=== PATIENT | female | born 1995 | race Caucasian/White ===

== ENCOUNTER 2017-09-06 17:31 | Emergency (ER) | END 2017-09-06 17:44 | disposition left against medical advice (07) | LOC: UCCORT 17:31 | DX: T14.8XXA Other injury of unspecified body region, initial encounter (principal); W55.01XA Bitten by cat, initial encounter; Y93.9 Activity, unspecified; Y92.9 Unspecified place or not applicable; Z53.21 Procedure and treatment not carried out due to patient leaving prior to being seen by health care provider ==

== ENCOUNTER 2018-09-03 10:51 | Emergency (ER) | payer BC, OTHER ==
--- NOTE | 2018-09-03 11:10 | UC ---
Lower Extremity/Ankle HPI - HPI Summary HPI Summary: 23 yo female presents with LEFT ankle and lower leg pain. She tells me that she was walking down the stairs on [facility] and her foot bent backwards and she twisted her ankle. Had immediate pain. She tried to use crutches, but was in too much pain. She cannot apply any weight to her left foot /ankle due to severe pain. She has not taken anything for pain. - History of Current Complaint Stated Complaint: LOWER LEFT LEG INJURY/RIGHT ANKLE Time Seen by Provider: 09/03/18 11:10 Hx Obtained From: Patient Onset/Duration: Sudden Onset Severity Initially: Severe Severity Currently: Severe Pain Intensity: 10 Pain Scale Used: 0-10 Numeric Able to Bear Weight: No - Allergies/Home Medications Allergies/Adverse Reactions: Allergies Allergy/AdvReac Type Severity Reaction Status Date / Time clams Allergy Unknown Verified 09/03/18 11:19 Reaction Details tree and shrub pollen Allergy Eyes Verified 09/03/18 11:19 Itchy/Swollen/Red/Watery Home Medications: Home Medications Amphetamine MIXED SALT TAB* [Adderall TAB*] 10 mg PO DAILY 09/03/18 [History Confirmed 09/03/18] Sertraline* [Zoloft*] 200 mg PO DAILY 09/03/18 [History Confirmed 09/03/18] clonazePAM TAB(*) [KlonoPIN TAB(*)] 0.5 mg PO TID PRN 09/03/18 [History Confirmed 09/03/18] PMH/Surg Hx/FS Hx/Imm Hx - Additional Past Medical History Additional PMH: ADHD Psychological History: Anxiety, Depression - Surgical History Surgical History: None - Family History Known Family History: Positive: None - Social History Occupation: Student Lives: Dormitory/Roommates Alcohol Use: Occasionally Substance Use Type: None Smoking Status (MU): Never Smoked Tobacco Review of Systems Constitutional: Negative Skin: Negative Respiratory: Negative Cardiovascular: Negative Neurovascular: Negative Musculoskeletal: Other: - Left ankle and lower leg pain Neurological: Negative Psychological: Negative All Other Systems Reviewed And Are Negative: Yes Physical Exam - Summary Physical Exam Summary: GENERAL: NAD. WDWN. SKIN: No rashes, sores, lesions, or open wounds. CHEST: No accessory muscle use. Breathing comfortably and in no distress. CV: Pulses intact PT and DP. Cap refill <2seconds MSK: RIGHT ANKLE: Strength 5/5. No edema or obvious bony deformities. Negative talar tilt. No increased laxity. LEFT ANKLE: Severe TTP over lateral malleolus and distal tib/fib. Decreased ROM due to pain - worse with plantar flexion and inversion. NEURO: Alert. Sensations intact and symmetric B/L LEs PSYCH: Age appropriate behavior. Triage Information Reviewed: Yes Vital Signs: Vital Signs: Temp Pulse Resp BP Pulse Ox 97.8 F 65 14 113/78 100 09/03/18 11:14 09/03/18 11:14 09/03/18 11:14 09/03/18 11:14 09/03/18 11:14 Vital Signs Reviewed: Yes Lower Extremity Course/Dx - Course Course Of Treatment: In the clinic she was given one tab of [place] for pain with good relief. iSTOP Reference #: [id number]. XR: IMPRESSION: No fracture of left leg is noted. IMPRESSION: No fracture of the left foot is noted. IMPRESSION: No fracture of the left ankle is noted. Pt has crutches at home. She was given an yulia wrap and gel ankle splint. Advised to RICE and take ibuprofen. F/u with Ortho if symptoms worsen or persist. - Differential Dx/Diagnosis Provider Diagnoses: Left ankle sprain Discharge - Sign-Out/Discharge Documenting (check all that apply): Patient Departure All imaging exams completed and their final reports reviewed: Yes - Discharge Plan Condition: Stable Disposition: HOME Prescriptions: Ibuprofen 800 mg PO Q8HR PRN #30 tablet PRN Reason: Pain Patient Education Materials: Ankle Sprain (ED) Forms: *Work Release Referrals: Lupe Tompkins MD [Primary Care Provider] - Cholo Hinson MD [Medical Doctor] - If Needed Additional Instructions: If you develop a fever, shortness of breath, chest pain, new or worsening symptoms - please call your PCP or go to the ED. 1) Rest, Ice, and elevate your ankle as much as possible 2) Use the crutches, yulia wrap, and gel splint as needed for comfort and added support 3) If your symptoms worsen or persist - please schedule a follow up appointment with Orthopedics at the number below - Billing Disposition and Condition Condition: STABLE Disposition: Home
[2018-09-03] MEDS ORDERED: HYDROcodone/ACETAMIN 5-325 MG* 1 TAB PO ONE (11:17)
[2018-09-03 11:24] VITALS: BP 113/78
--- NOTE | 2018-09-03 11:49 | RAD ---
Indication: Left ankle pain. 3 views of left ankle demonstrates ankle mortise to be intact. There is no fracture or dislocation. No other bone or joint abnormality is identified. IMPRESSION: No fracture of the left ankle is noted.
--- NOTE | 2018-09-03 11:50 | RAD ---
Indication: Left leg pain. 2 views of left leg straight no fracture or dislocation. No other bone or joint abnormality is identified. IMPRESSION: No fracture of left leg is noted.
--- NOTE | 2018-09-03 11:50 | RAD ---
Indication: Left foot pain. 3 views of left foot are reviewed. There is no fracture or dislocation. No other bone or joint abnormality is identified. IMPRESSION: No fracture of the left foot is noted.
== END 2018-09-03 12:24 | disposition home or self-care (01) ==
LOC: UCCORT 10:51
DX: S93.402A Sprain of unspecified ligament of left ankle, initial encounter (principal); F90.9 Attention-deficit hyperactivity disorder, unspecified type; F41.9 Anxiety disorder, unspecified; F32.9 Major depressive disorder, single episode, unspecified; J30.1 Allergic rhinitis due to pollen; W18.43XA Slipping, tripping and stumbling without falling due to stepping from one level to another, initial encounter; Y92.9 Unspecified place or not applicable; Z91.013 Allergy to seafood
CPT/HCPCS: 99213; G0463